=== PATIENT | male | born 1950 | race Caucasian/White ===

== ENCOUNTER → 2023-11-09 | Outpatient (CLI) | payer MEDICARE, SELFPAY ==
--- NOTE | 2023-11-09 07:26 | MRI_ITS ---
MRI Abdomen w/ and w/out contrast 11/09/2023 7:53 AM COMPARISON: CT 11/03/2023 CLINICAL HISTORY: LEFT KIDNEY MASS TECHNIQUE: Multiplanar T1 and T2 weighted, diffusion and dynamic post-gadolinium images were obtained through the abdomen before and after administration of 17 cc of IV Clariscan. FINDINGS: Liver: Unremarkable Gallbladder: Unremarkable Pancreas: Unremarkable Spleen: Unremarkable Adrenal Glands: Unremarkable Kidneys: In the lower pole of the left kidney, there is a 3.1 x 3.3 x 3.5 cm T1 and T2 mixed intensity lesion. There is no drop in signal on T1 opposed phase images compared to T1 in phase images. On postcontrast images, there is questionable minimal heterogeneous enhancement. There are other non enhancing T2 hyperintense simple cysts in the left kidney. GI Tract: Unremarkable Lymphadenopathy: Absent Ascites: Absent Bones: No suspicious lesions MRI/MRI Abd WITH and W/O Contrast IMPRESSION: 3.5 cm mixed intensity lesion in the left lower renal pole with questionable minimal heterogeneous enhancement. This lesion remains indeterminate and could represent a hemorrhagic cyst versus renal cell carcinoma. Consider short term follow-up CT in 3 months to assess for growth. Electronically Signed: David Mix MD at 19:15 EDT ,
== END | disposition home or self-care (01) ==
PROVIDERS: PCP Internal Medicine; Referring Provider Internal Medicine Hematology & Oncology; Visit Provider Internal Medicine Hematology & Oncology
DX: N28.89 Other specified disorders of kidney and ureter (principal); C20 Malignant neoplasm of rectum
CPT/HCPCS: 74183; A9575

== ENCOUNTER 2023-11-21 09:16 | Day surgery (SDC) | payer MEDICARE, SELFPAY ==
[2023-11-21] VITALS (9 sets, daily range): BP systolic 118–155; BP diastolic 55–77; PULSE 66–86; RESP 16–18; TEMP 36.1–36.9; O2SAT 95–100; BMI 28.5
--- NOTE | 2023-11-21 09:45 | HP.PCM_ITS ---
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 Required: No Is patient in pain?: No Allergies lisinopril Allergy (Mild, Verified 11/16/23 10:04) Rash Medications ?Medication ?Instructions ?Recorded ?Confirmed ?Type amlodipine 10 mg tablet 10 mg PO QHS 10/25/23 11/16/23 History aspirin 81 mg tablet,delayed 81 mg PO DAILY 10/25/23 11/16/23 History release (Adult Aspirin Regimen) atenolol 50 mg tablet 50 mg PO QHS 10/25/23 11/16/23 History atorvastatin 40 mg tablet 40 mg PO QHS 10/25/23 11/16/23 History dapagliflozin propanediol 5 mg 5 mg PO DAILY 10/25/23 11/16/23 History tablet (Farxiga) levothyroxine 125 mcg capsule 125 mcg PO DAILY 10/25/23 11/16/23 History loratadine 10 mg tablet 10 mg PO DAILY 10/25/23 11/16/23 History losartan 25 mg tablet 25 mg PO QHS 10/25/23 11/16/23 History metformin 500 mg tablet 500 mg PO BID 10/25/23 11/16/23 History semaglutide 0.25 mg or 0.5 mg (2 0.25 mg subcut QWEEK 10/25/23 11/16/23 History mg/3 mL) subcutaneous pen injector (Spacious App) lidocaine-prilocaine 2.5 %-2.5 % 1 applic topical ONCE PRN port 11/03/23 11/16/23 Rx topical cream access 30 days #30 grams ondansetron 8 mg disintegrating 8 mg PO Q8H PRN nausea and 11/03/23 11/16/23 Rx tablet vomiting #30 tabs PFSH Medical History Encounter for education Wears hearing aid Wears partial dentures Wears dentures Easy bruising Back pain Dietary restriction Heartburn Smoker History of stress test Cardiology follow-up encounter Iron deficiency anemia due to chronic blood loss Anemia Liver lesion Left kidney mass Rectal cancer Thyroid nodule Arthritis Type 2 diabetes mellitus Hyperlipidemia Hypothyroidism Essential hypertension Surgical History Hx of right cataract extraction Hx of left cataract extraction Hx of colonoscopy H/O removal of testicle History of tonsillectomy and adenoidectomy History of knee surgery History of ear surgery Family History Grandfather DiabetesMother Cancer ovarianGrandmother Myocardial infarctionAunt Cancer female reproductive cancer Social History household members: spouse Smoking Status: Current every day smoker tobacco type: cigarettes Tobacco: How many years used: 55 alcohol intake: never substance use type: does not use HPI HPI HPI: Patient is a 72-year-old male here for port placement for chemotherapy for rectal cancer. Patient is planning to start chemotherapy early next week. ROS General General: Yes weight change and colon cancer; No appetite, fatigue, breast cancer or weakness HEENT HEENT: No difficulty swallowing, eye injury, eye surgery, swollen glands or hoarseness Endo Endocrine: Yes diabetes mellitus; No thyroid disease, thyroid cancer, Hair loss, heat intolerance or cold intolerance Skin Skin: No rash or changing moles Breast Breast: No left breast lump, right breast lump, nipple discharge, breast pain, abnormal mammogram, abnormal US or breast enlargement Musc Musculoskeletal: Yes back problems and arthritis; No rheumatoid arthritis, gout or joint pain Cardio Cardiovascular: No murmur, pacemaker, heart disease, atrial fibrillation, high blood pressure, heart attack, heart stent, palpitations, shortness of breat with exertion or chest pain Psych Psychiatric: No depression, anxiety or hearing voices Resp Respiratory: No shortness of breath, No sleep apnea, Yes cough, No COPD, No asthma, No emphysema and No wheezing Gastro Gastrointestinal: No abdominal pain, No nausea or vomiting, No diarrhea, No constipation, No blood in stool, No acid reflux, No hemorrhoids, No ulcers, No gallbladder problem and No black,tarry stools David Hematologic: Yes blood thinners, No blood disorders, No bleeding, No anemia and No blood clots Neuro Neurologic: No system reviewed and no additional complaints, except as documented, No as per HPI, No abnormal gait, No abnormal hearing, No abnormal movements, No abnormal speech, No behavioral changes, No burning sensations, No confusion, No convulsions, No disequilibrium, No dizziness, No localized weakness, No frequent falls, No headache(s), No lack of coordination, No loss of vision, No memory loss, No numbness, No other visual disturbances, No radicular pain, No restless legs, No sensory deficit, No syncope, No tingling, No tr emor(s), No weakness and No other Exam Const General: cooperative Orientation: alert and oriented x3 HENMT Head: normal to inspection Neck Neck: normal visual inspection and full ROM Chest Chest palpation & inspection: normal inspection of the chest Resp Effort & Inspection: normal respiratory effort Auscultation: clear to auscultation bilaterally Cardio Rate: regular rate Rhythm: regular rhythm GI Inspection: non-distended Palpation: soft and nontender Skin General: no rashes or lesions noted Neuro General: patient alert and patient oriented x3 Extrem General: full ROM Psych Appearance: grossly normal Mental Status: mental status grossly normal Assessment and Plan Assessment and Plan (1) Encounter for adjustment and management of vascular access device: Status: Acute Plan: Patient is here for port placement for chemotherapy for rectal cancer. I discussed port placement with the patient in detail as well as the risks including but not limited to bleeding, infection, pneumothorax, line infection or DVT. Patient understands all the risks and is willing to proceed. Unfortunately the patient took his Ozempic last Tuesday so I will have to schedule next week. I have him tentatively scheduled for Tuesday afternoon and I talked to Dr. Ardon about delaying chemotherapy until Tuesday. I will leave his port accessed after putting it in Tuesday for chemotherapy Tuesday. Patient will hold his aspirin starting today. Brad Randall MD Pager: [facility] [address] [place] [address], [address] [place] [address] Office: I have examined the patient and the H&P has been reviewed. There are no clinical changes since date of exam.
[2023-11-21] MEDS: Lactated Ringers 1,000 ML 15 ML IV (09:52)
--- NOTE | 2023-11-21 10:12 | PCM.PRE.AN2 ---
ASA Classification* ASA Classification ASA Classification: 3 Assessment & Plan Anesthesia* Anesthesia Assessment Anesthesia Assessment: Discussed sedation and/or anesthesia options, risks, benefits, and alternatives with patient/parents/legal guardian/POA. Questions invited. The patient/parents/legal guardian/POA seems to understand and agrees to proceed with anesthesia plan. Reviewed the physical assessment, medical history, allergy history and patient home medications list prior to surgery/procedure/anesthetic and documented any changes. Performed airway and anesthesia risk assessments. Anesthesia Type Anesthesia Type: MAC History Source History Obtained from:: Patient and Chart Pre-Assessment Diagnosis/Proposed Procedure Planned Operative Procedure(s): INSERTION VASCULAR PORT RIGHT Anesthesia History Anesthesia History - business services sales representative: Anesthesia History - business services sales representative Hx Hospitalization No 11/01/23 11:27 Any Problems With Anesthesia No 11/01/23 11:27 Cholinesterase deficiency No 11/01/23 11:27 You/Your Family Experience No 11/01/23 11:27 fever (hyperthermia) with Relationship Recent Exposure to Contagious No 11/21/23 09:52 Disease Does patient have nerve No 11/01/23 11:27 stimulator Patient instructed to have device shut off --Does patient have Pacemaker No 11/21/23 09:52 or ICD? When Was Last Pacemaker Check QUESTION #4 FULL TEXT: You/Your Family Experience fever (hyperthermia) with Anesthesia Last Oral Intake Last Oral intake: Last Oral Intake NPO since 00:00 11/21/23 09:52 Meds taken in AM with sips of water? Meds patient instructed to take am of surgery PONV PONV - business services sales representative: PONV - business services sales representative Female No 11/01/23 11:27 HX of Motion Sickness No 11/01/23 11:27 HX of N/V After Surgery No 11/01/23 11:27 Non-Smoker No 11/01/23 11:27 Duration of Surgery greater No 11/01/23 11:27 than 60 minutes Number of Risk Factors PONV Score Height & Weight Height & Weight: Anesthesia: Height & Weight Height 5 ft 7 in 11/21/23 09:52 Weight: 82.554 kg 11/21/23 09:52 Body Mass Index (BMI) 28.5 11/21/23 09:52 Respiratory Assessment Respiratory Assessment - business services sales representative: Respiratory Tract Infection Hx - business services sales representative Hx Respiratory Tract Infection No 11/01/23 11:27 STOP Sleep Apnea STOP Sleep Apnea - business services sales representative: STOP Sleep Apnea - business services sales representative Hx Hypertension Yes: CONTROLLED WITH MEDS 11/01/23 11:27 Hx Sleep Apnea No 11/01/23 11:27 CPAP BIPAP Do you snore loudly (louder No 11/01/23 11:27 than talking or can be heard Do you often feel tired/ No 11/01/23 11:27 fatigued/ sleepy during daytime? Has anyone observed you stop No 11/01/23 11:27 breathing during sleep? STOP Results Negative 11/01/23 11:27 QUESTION #5 FULL TEXT : Do you snore loudly (louder than talking or can be heard through closed doors)? 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 Specify any problems Hx of Preganancy in last 3 N/A 11/01/23 11:27 Months Nurse Filling Out Transfusion DSCHRIBER 11/01/23 11:27 & Questions: Date: 11/01/23 11/01/23 11:27 Time: 11:28 11/01/23 11:27 Patient unable to answer at this time (ie. confused, unrespo /Reproduction History /Reproductive History - business services sales representative: /Reproductive Hx- business services sales representative Hx Now No 11/01/23 11:27 Gestational Age (in weeks): EDC: Hx Hx Para Hx Section SAB No 11/01/23 11:27 Active Medications Active Medications: Current Medications Generic Name Dose Route Start Last Admin Trade Name Freq PRN Reason Stop Dose Admin Cefazolin Sodium 2 gm/ Sodium 110 mls @ 150 mls/hr 11/21/23 14:05 Chloride IV 11/21/23 14:48 PREOP ONE Lactated Ringer's 1,000 mls @ 15 mls/hr 11/21/23 09:45 11/21/23 09:52 IV 15 mls/hr .Q48H RENETTA Administration Anesthesia Focused Assessment* Temperature: 97.0 F Pulse Rate: 78 Blood Pressure: 155/67 Respiratory Rate: 16 Pulse Ox: 100 Oxygen Delivery Method: Room Air Airway Assessment Mouth opens: >3 cm Mallampati Score: IV Teeth Condition: Dentures (Full upper plate) and Partial (Lower) Neck Range of motion (ROM): Limited ROM (Slight decrease) Comment: Full springer Focused Labs Anesthesia Preop lab: CBC WBC 10.5 K/mm3 (4.4-11.0) 10/31/23 09:57 RBC 3.99 M/mm3 (4.6-6.2) L 10/31/23 09:57 Hgb 10.4 g/dL (13.0-16.5) L 10/31/23 09:57 Hct 33.2 % (40-54) L 10/31/23 09:57 Plt Count 352 K/mm3 (150-450) 10/31/23 09:57 CHEMISTRY Potassium 4.4 mmol/L (3.5-5.1) 10/31/23 09:57 Sodium 131 mmol/L (136-145) L 10/31/23 09:57 BUN 17 mg/dL (7-18) 10/31/23 09:57 Creatinine 1.07 mg/dL (0.70-1.30) 10/31/23 09:57 Glucose 109 mg/dL (74-106) H 10/31/23 09:57 COAG Review of Systems (Anesthesia) ROS Narrative System reviewed and no additional complaints, except as documented. [facility] Medical History Encounter for education Wears hearing aid Wears partial dentures Wears dentures Easy bruising Back pain Dietary restriction Heartburn Smoker History of stress test Cardiology follow-up encounter Iron deficiency anemia due to chronic blood loss Anemia Liver lesion Left kidney mass Rectal cancer Thyroid nodule Arthritis Type 2 diabetes mellitus Hyperlipidemia Hypothyroidism Essential hypertension Home Medications ?Medication ?Instructions ?Recorded ?Last Taken ?Type amlodipine 10 mg tablet 10 mg PO QHS 10/25/23 11/19/23 History aspirin 81 mg tablet,delayed 81 mg PO DAILY 10/25/23 11/19/23 History release (Adult Aspirin Regimen) atenolol 50 mg tablet 50 mg PO QHS 10/25/23 11/19/23 History atorvastatin 40 mg tablet 40 mg PO QHS 10/25/23 11/19/23 History dapagliflozin propanediol 5 mg 5 mg PO DAILY 10/25/23 11/19/23 History tablet (Farxiga) levothyroxine 125 mcg capsule 125 mcg PO DAILY 10/25/23 11/19/23 History loratadine 10 mg tablet 10 mg PO DAILY 10/25/23 11/19/23 History losartan 25 mg tablet 25 mg PO QHS 10/25/23 11/19/23 History metformin 500 mg tablet 500 mg PO BID 10/25/23 11/19/23 History semaglutide 0.25 mg or 0.5 mg (2 0.25 mg subcut KIMBLE 10/25/23 11/13/23 History mg/3 mL) subcutaneous pen injector (Ozempic) lidocaine-prilocaine 2.5 %-2.5 % 1 applic topical ONCE PRN port 11/03/23 11/19/23 Rx topical cream access 30 days #30 grams ondansetron 8 mg disintegrating 8 mg PO Q8H PRN nausea and 11/03/23 Unknown Rx tablet vomiting #30 tabs Allergy/AdvReac Type Severity Reaction Status Date / Time lisinopril Allergy Mild Rash Verified 11/21/23 10:05 Family History Grandfather Diabetes Mother Cancer ovarian Grandmother Myocardial infarction Aunt Cancer female reproductive cancer Surgical History Hx of right cataract extraction Hx of left cataract extraction Hx of colonoscopy H/O removal of testicle History of tonsillectomy and adenoidectomy History of knee surgery History of ear surgery Social History household members: spouse Smoking Status: Current every day smoker tobacco type: cigarettes Tobacco: How many years used: 55 alcohol intake: never substance use type: does not use Addt'l Information Additional Findings: Patient smokes a pack and a half a day. He did smoke today
[2023-11-21 10:27] LABS: Bedside Glucose 121 mg/dL (74-106)
[2023-11-21] MEDS: Cefazolin 2 GM in 0.9% Normal Saline (100mL Bag) 100 ML IV (10:46)
[2023-11-21] MEDS: Bupivacaine 0.5% PF 10 ML VIAL (11:13)
[2023-11-21] MEDS: Lidocaine 1% /Epi 1:100 (20ml) 20 ML Vial (11:13)
--- NOTE | 2023-11-21 11:25 | OP.PCM_ITS ---
Report of Operation Date of Procedure: 11/21/23 Pre-Operative Diagnosis: Need for vascular access for chemotherapy Post-Operative Diagnosis: Same Surgery/Procedure Performed:: Ultrasound fluoroscopy guided right chest port placement utilizing right IJ Type of Anesthesia: Local MAC Estimated Blood Loss (mL): 5 Description of Procedure: After obtaining informed consent patient was brought back to the operating room MAC anesthesia was induced and the right chest and neck were prepped in normal sterile fashion. Ultrasound was used to evaluate both IJs and the right IJ was selected. Next, using a needle, the right IJ was accessed and a guidewire was passed on into the superior vena cava under fluoroscopy guidance. A small incision was made over the puncture site and the dilator introducer was placed over the guidewire. Next this was capped and the pocket was made for the port. 1% lidocaine with epinephrine was injected in the proposed port site. An incision was made with scalpel. Electrocautery was used to make a pocket under the skin and subcutaneous tissue. Hemostasis was obtained. Next, the catheter was tunneled up to the neck incision site and placed through the introducer. The peel-away introducer was removed and the position of the catheter was confirmed on fluoroscopy. Next, the catheter was trimmed and attached to the port with the locking device. Interrupted 2-0 Vicryl sutures were used to anchor the port to the chest wall and then the port was placed inside the pocket. The pocket was then flushed with saline and the port irrigated with saline. There was good blood return and the port flushed easily. The skin was closed with subcutaneous interrupted 3-0 Vicryl sutures. A single 3-0 Vicryl sutures placed under the skin at the neck incision site. Steri-Strips were placed and then the port was accessed. The catheter was aspirated and flushed and then flushed with 3 cc of heparinized saline and they were clamped and capped. Catheter flushed and aspirated easily. Next dressings were applied. Patient tolerated procedure well, was taken to PACU in stable condition. Chest x-ray will be obtained. Grafts/Implants Used: 8 [place] PowerPort Admit VTE Documentation VTE Mechan Device Prophylaxis: SCD's
--- NOTE | 2023-11-21 11:27 | DCINST_ITS ---
Discharge Instructions Procedure Port-A-Cath Diet Discharge Diet: Light diet - advance as tolerated (Pain medication may cause nausea. You should typically eat light foods as you take your pain medication.) Activity Discharge Activity: Return to Normal Activity and May Shower (with your bandage in place in 1-2 days after surgery. DO NOT SHOWER WHEN YOUR PORT IS ACCESSED.) Additional Activity Instructions:: Resume Ozempic this Tuesday, resume aspirin tomorrow. Ibuprofen and Tylenol alternating for pain. Ice if needed. Dressing / Incision Call your doctor if your incision/area has: Continuous Slow Oozing, Sudden Increased Bleeding, Increased Pain/ Swelling, Increased Redness and Foul Smelling Discharge Call your doctor if you observe: Fever of 101 or Higher Remove Dressing in: 2 days Cleanse incision/area with: Soap & Water Follow Up Care Please Follow Up With: Brad Randall MD When: as needed [phone] Test Results: Test results from this visit will be discussed in further detail at your follow- up appointment, if applicable. Discharge Plan Admission Attending Provider: Brad Randall Primary Care Provider: Randa Santos Instructions Print Language: Niuean Discharge Orders/Prescriptions Prescriptions: No Action loratadine 10 mg tablet 10 mg PO DAILY levothyroxine 125 mcg capsule 125 mcg PO DAILY dapagliflozin propanediol [Farxiga] 5 mg tablet 5 mg PO DAILY Ozempic 0.25 mg or 0.5 mg (2 mg/3 mL) pen injector 0.25 mg subcut KIMBLE Rx Instructions: for 4 weeks metformin 500 mg tablet 500 mg PO BID losartan 25 mg tablet 25 mg PO QHS atenolol 50 mg tablet 50 mg PO QHS aspirin [Adult Aspirin Regimen] 81 mg tablet,delayed release (DR/EC) 81 mg PO DAILY amlodipine 10 mg tablet 10 mg PO QHS atorvastatin 40 mg tablet 40 mg PO QHS ondansetron 8 mg tablet,disintegrating 8 mg PO Q8H PRN (Reason: nausea and vomiting) Qty: 30 1RF lidocaine-prilocaine 2.5-2.5 % cream 1 applic topical ONCE PRN (Reason: port access) 30 Days Qty: 30 2RF Referrals / Follow Up: Randa Santos MD [Primary Care Provider] - Disposition Disposition (needs filled in before D/C Order can be placed): Home, Self Care
--- NOTE | 2023-11-21 11:27 | RAD_ITS ---
STUDY: X-RAY CHEST REASON FOR EXAM: Male, 72 years old. Port placement TECHNIQUE: Single AP portable view of the chest. COMPARISON: None. FINDINGS: A right-sided portacatheter is in place. The tip is at the junction of the superior vena cava and right atrium. Hyperinflation. The lungs are clear. Scattered calcified granulomas. There is no demonstrated pleural abnormality. Normal size heart. Right hilar calcified lymph nodes. Normal visualized pulmonary arteries. There is atherosclerotic calcification of the aortic arch with tortuosity. There are diffuse degenerative changes of the visualized thoracic spine. Normal visualized ribs, clavicles, and shoulders. There is no demonstrated abnormality of the visualized soft tissue structures of the upper abdomen. RAD/CXR for Line Placement IMPRESSION: The tip of the right Port-A-Cath is at the junction of the superior vena cava and right atrium. The lungs are clear. Electronically Signed: Ronni Eugene MD at 12:37 EDT ,
--- NOTE | 2023-11-21 11:27 | PCM.POST.ANE ---
Anesthesia: Postop Eval I Current Vital Signs Temperature: 98.4 F Pulse Rate: 84 Blood Pressure: 125/72 Respiratory Rate: 18 Pulse Ox: 98 Oxygen Delivery Method: Room Air Assessment Airway patent: Yes Spontaneous unlabored respirations: Yes Mental status: Awake and Calm nausea: No Vomiting: No Anesthesia Complication: No Fluid Hydration Crystalloid volume administer (ml): 200 Total IV fluid infused: 200 Progress Note Anesthesia document: Postop Eval 1 completed: Yes
--- NOTE | 2023-11-22 09:57 | POSTOPAN2_ITS ---
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.[email or web address] Spontaneous unlabored Yes 11/21/23 11:28 SCHOOL BUS [email or web address].[email or web address] respirations Mental status Awake,Calm 11/21/23 11:28 SCHOOL BUS DISPATCHER.[email or web address] nausea No 11/21/23 11:28 SCHOOL BUS [email or web address].[email or web address] Vomiting No 11/21/23 11:28 SCHOOL BUS [email or web address].[email or web address] Anesthesia Postop Eval I: Fluid Summary Crystalloid volume administer 200 11/21/23 11:28 SCHOOL BUS [email or web address].[email or web address] (ml) Colloids volume administered ( ml) Blood Product volume administered (ml) Total IV fluid infused 200 11/21/23 11:28 SCHOOL BUS [email or web address].[email or web address] Anesthesia Postop Eval I: Summary Notes Anesthesia Complication No 11/21/23 11:28 SCHOOL BUS [email or web address].[email or web address] Anesthesia Complication Comment: Post-operative progress note Anesthesia: Postop Eval II Evaluation Mental status: Awake and Calm Pain Level: 0 nausea: No Vomiting: No Complications Anesthesia Complication: No
--- NOTE | 2023-11-22 09:57 | PCM.POSTANE2 ---
Anesthesia Postop Eval I Sum Postop Eval Completion status Anesthesia document: Postop Eval 1 completed: Yes Anesthesia Postop Eval I Summary Anesthesia Postop Eval I Summary: Anesthesia Postop Eval I: Assessment Summary Airway patent Yes 11/21/23 11:28 ESOL TEACHER.[email or web address] Spontaneous unlabored Yes 11/21/23 11:28 ESOL TEACHER.[email or web address] respirations Mental status Awake,Calm 11/21/23 11:28 ESOL TEACHER.[email or web address] nausea No 11/21/23 11:28 ESOL TEACHER.[email or web address] Vomiting No 11/21/23 11:28 ESOL TEACHER.ANDREA Anesthesia Postop Eval I: Fluid Summary Crystalloid volume administer 200 11/21/23 11:28 ESOL [email or web address].[email or web address] (ml) Colloids volume administered ( ml) Blood Product volume administered (ml) Total IV fluid infused 200 11/21/23 11:28 ESOL TEACHER.ANDREA Anesthesia Postop Eval I: Summary Notes Anesthesia Complication No 11/21/23 11:28 ESOL [email or web address].ANDREA Anesthesia Complication Comment: Post-operative progress note Anesthesia: Postop Eval II Evaluation Mental status: Awake and Calm Pain Level: 0 nausea: No Vomiting: No Complications Anesthesia Complication: No
== END 2023-11-21 12:52 | disposition home or self-care (01) ==
LOC: SDC 09:18 → AC 09:21
PROVIDERS: PCP Internal Medicine; Referring Provider Surgery; Visit Provider Surgery
PROC: (CPT 36561; principal; 2023-11-21 10:15)
DX: Z45.2 Encounter for adjustment and management of vascular access device (principal); C20 Malignant neoplasm of rectum; E11.9 Type 2 diabetes mellitus without complications; I10 Essential (primary) hypertension; F17.210 Nicotine dependence, cigarettes, uncomplicated; E78.5 Hyperlipidemia, unspecified; Z79.899 Other long term (current) drug therapy; Z79.82 Long term (current) use of aspirin; Z79.890 Hormone replacement therapy; Z79.84 Long term (current) use of oral hypoglycemic drugs; Z79.01 Long term (current) use of anticoagulants; Z79.85 Long-term (current) use of injectable non-insulin antidiabetic drugs; E03.9 Hypothyroidism, unspecified; E04.1 Nontoxic single thyroid nodule
CPT/HCPCS: 36561; 00532; 71045; 77001; 77386; 82962; J7120; C1788

== ENCOUNTER → 2024-06-11 | Outpatient (CLI) | payer MEDICARE, SELFPAY ==
--- NOTE | 2024-06-11 15:30 | CT_ITS ---
STUDY: CT CHEST, ABDOMEN T PELVIS WITH CONTRAST REASON FOR EXAM: Male, 73 years old. F/U RECTUM CA, LIVER LESION LEFT KIDNEY MASS RADIATION DOSAGE (If Supplied By Facility): CTDIvol = ( 12.41 ) mGy, DLP = ( 1519.21 ) mGycm TECHNIQUE: Transaxial imaging was performed following intravenous administration of IV 100mL Isovue-300. Multiplanar coronal and sagittal images were reformatted. Individualized dose optimization techniques were used for this CT. COMPARISON: Comparison is made with prior MRI of the abdomen dated November 09, 2023. FINDINGS: CHEST A right-sided portacatheter is seen with the tip in the superior vena cava. Small benign-appearing bilateral axillary lymph nodes. Hyperinflation. No infiltrate or mass lesion is seen. There is no demonstrated pleural abnormality. There are calcifications of the coronary arteries. Normal mediastinum. Normal hilar regions. Normal unenhanced pulmonary arteries. There is atherosclerotic calcification of the aortic arch and descending thoracic aorta. There are multi-level degenerative changes of the thoracic spine. Old right-sided rib fractures. ABDOMEN Normal liver. The gallbladder is contracted. Normal spleen. Normal pancreas. Normal bilateral adrenal glands. Normal right kidney. There is a 3.5 cm x 3.5 cm hypodense mass in the lower pole of the left kidney. There is a 2.6 cm cyst in the posterior midportion of the left kidney. There is a 3.8 cm cyst in the medial inferior pole of the left kidney. Normal visualized stomach. Normal small intestine. Circumferential wall thickening of the rectosigmoid junction. The appendix is visualized and appears normal. There is diffuse atherosclerotic calcification of the abdominal aorta and its major visceral branches, without a demonstrated aneurysm. Normal inferior vena cava. Normal retroperitoneum. Small bilateral hernias containing fat right greater than left. There are diffuse degenerative changes of the visualized lumbar spine. PELVIS Diffuse bladder wall thickening. Heterogeneous enlargement of the prostate with indentation at the bladder base. The prostate measures 4.7 size by 5.7 cm. There is no pelvic fluid. There is no pelvic lymphadenopathy or mass lesion. Normal visualized pelvic arteries. CT/CT Chest, Abd, Pel w/Contrast IMPRESSION: 3.5 cm x 3.5 cm hypodense mass in the lower pole of left kidney. This is not a typical cyst. This was seen on prior MRI of the abdomen. Simple cysts are also seen in the left kidney. Circumferential wall thickening at the rectosigmoid junction. Heterogeneous enlargement of prostate with indentation of the bladder base. Diffuse bladder wall thickening. Electronically Signed: Ronni Eugene MD at 13:09 EST ,
[2024-06-11] MEDS: 0.9% Saline Lock 10 ML Syringe IV (15:50)
== END | disposition home or self-care (01) ==
LOC: CT 15:30
PROVIDERS: PCP Internal Medicine; Referring Provider Internal Medicine Hematology & Oncology; Visit Provider Internal Medicine Hematology & Oncology
DX: C20 Malignant neoplasm of rectum (principal); N28.89 Other specified disorders of kidney and ureter; K76.9 Liver disease, unspecified

== ENCOUNTER → 2024-09-24 | Outpatient (CLI) | payer MEDICARE, SELFPAY ==
--- NOTE | 2024-09-24 08:22 | MRI_ITS ---
PROCEDURE: MRI ABD WITH AND W/O CONTRAST (MRIABDWW), 09/24/2024 REASON FOR EXAM: RENAL MASS TECHNIQUE: Multiplanar multisequence MRI abdomen was performed with and without IV contrast. IV CONTRAST: 17 mL Clariscan COMPARISON: 06/11/2024 and prior FINDINGS: Note that the exam was optimized for evaluation of the kidneys, and as such, some upper abdominal viscera are excluded from the field of view on some sequences. Variable overall mild motion limitation. Some axial T1 precontrast is moderately motion degraded. Note dynamic postcontrast and diffusion sequences were not performed. Liver: Grossly unremarkable as imaged. Spleen: Grossly unremarkable as imaged. Gallbladder: Unremarkable. Pancreas: Unremarkable. Adrenals: Unremarkable. Kidneys: Index mostly exophytic heterogeneously T2 dark and T1 bright solid- appearing LEFT lower pole renal lesion measures 3.8 x 3.5 x 3.6 cm compared with 3.3 x 3.1 by 3.1 cm on 11/09/2023. Lesion is minimally excluded from the field of view on some axial sequences but is included in the field of view on other sequences obtained, including coronal sequences. Difficult to evaluate for superimposed enhancement in the absence of subtraction imaging which cannot be generated on discussion with technologist due to technical factors. Additional bilateral renal cysts, one of which on the LEFT contains a thin enhancing septation, Bosniak I-II. Bowel: Better evaluated on previous CT. Lymph nodes: Unremarkable. Vasculature: Severe atherosclerosis, better evaluated on previous CT, including multifocal ectasia/aneurysm up to roughly 3.2 x 2.9 cm. Focal stenosis at the proximal SMA, not well evaluated Peritoneum: Unremarkable. Bones: Presumed degenerative enhancement in the LEFT iliac bone abutting the posterior SI joint in an area where sclerosis was present previously. Mild thoracolumbar dextroscoliosis.. Spondylosis. Other: Bladder wall thickening/trabeculation suggested. MRI/MRI Abd WITH and W/O Contrast IMPRESSION: 1. Slightly enlarged now 3.8 cm LEFT lower pole renal lesion compared with 10/28. Evaluation for enhancement is limited due to technical factors, however increased in size is suspicious for neoplasm, spe cifically including papillary renal cell carcinoma. Recommend urology consultation for management. 2. Abdominal aortic aneurysm to 3.2 cm. Recommend follow-up in 3 years per 201 3 ACR recommendations. 3. Correlate for cystitis and/or chronic bladder outlet obstruction. 4. Additional description as above. Reading Location: [facility]
[2024-09-24] MEDS: 0.9% Saline Lock 10 ML Syringe IV (09:11)
== END | disposition home or self-care (01) ==
LOC: OPMRI 08:10
PROVIDERS: PCP Internal Medicine
DX: N28.89 Other specified disorders of kidney and ureter (principal)
CPT/HCPCS: 74183; A9575

== ENCOUNTER → 2024-12-13 | Outpatient (CLI) | payer MEDICARE, SELFPAY ==
--- NOTE | 2024-12-13 15:07 | CT_ITS ---
PROCEDURE: CT chest abdomen and pelvis with IV contrast 12/13/2024 REASON FOR EXAM: RECTAL CA TECHNIQUE: Chest, abdomen and pelvis CT with intravenous contrast. Coronal and Sagittal reconstruction series were provided. One or more dose reduction techniques were used (e.g., Automated exposure control, adjustment of the mA and/or kV according to patient size, use of iterative reconstruction technique. PATIENT PREPARATION: Per protocol ORAL CONTRAST TYPE: None. CONTRAST: Isovue-300 VOLUME: 88mL RADIATION DOSE SUMMARY: CTDlvol: 42.32 mGy DLP: 1300.11 mGycm COMPARISON: MRI abdomen with and without contrast, 09/24/2024 FINDINGS: CT CHEST: Lower neck: The thyroid gland is diminutive. There is no supraclavicular lymphadenopathy. Mediastinum: No abnormal masses or lymphadenopathy. Heart/thoracic aorta: The heart size is normal. There is no pericardial effusion. There is calcific vascular disease of the thoracic aorta and coronary arteries. There is no evidence of thoracic aortic aneurysm or aortic dissection. The main pulmonary artery is normal in diameter. Airways/lungs/pleura: There is no significant interstitial or alveolar lung disease. There are no pulmonary nodules. There are no pleural effusions. Esophagus: Normal. Chest wall: There is a chemotherapy port in the right upper chest wall with the tip in the superior vena cava via the right internal jugular vein. 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 There is mild levoscoliosis of the thoracic spine. CT ABDOMEN/PELVIS: Liver: Normal. Gallbladder: Normal. Spleen: Normal. Pancreas: Normal. Adrenals: Normal. Kidneys: In the lower pole of the left kidney there is a 2.4 x 2.3 x 2.0 cm (measures 3.8 x 3.6 x 3.0 cm on the MR examination. This is likely a neoplasm treated with ablation. There are 2 cortical cyst in the interpolar region of the left kidney. The right kidney is unremarkable. Bladder: The bladder is distended consistent with bladder outlet obstruction and/or cystitis. Reproductive Organs: The prostate gland measures 4.0 cm in transverse dimension. The seminal vesicles are unremarkable. There is no free fluid in the pelvis. There are multiple reactive inguinal lymph nodes bilaterally, not significantly changed. Bowel: There is circumferential thickening of the wall of the distal sigmoid colon and rectum. There is increased attenuation of the perirectal fat in the adjacent fascia which could be due to radiation therapy. There is no pelvic lymphadenopathy identified. Appendix: Normal. Lymph nodes: There is no mesenteric, retroperitoneal or pelvic lymphadenopathy. Vasculature: There is calcific vascular disease of the abdominal aorta. There is a bilobed infrarenal abdominal aortic aneurysm measuring 3.2 cm in AP dimension. Peritoneum / Retroperitoneum: There are no abnormal intra or retroperitoneal masses or fluid collections. There is a right inguinal hernia measuring 4.0 cm in diameter containing fat and a portion of the urinary bladder. Bones: There is multilevel degenerative disc disease of the lower thoracic and lumbar spine most severe at the L5-S1 level. There is mild dextroscoliosis of the thoracolumbar spine. CT/CT Chest, Abd, Pel w/Contrast IMPRESSION: 1. Circumferential thickening of the wall of the distal sigmoid colon and rect um of uncertain clinical significance. 2. There are stable reactive inguinal lymph nodes bilaterally. There is no pe lvic, mesenteric or retroperitoneal lymphadenopathy. 3. There is a thick walled low-density nodule in the lower pole cortex of the left kidney, consistent with a tumor treated with ablation. 4. Large right inguinal hernia containing a portion of the urinary bladder. 5. Other findings as noted. Reading Location: [place] [id number]
[2024-12-13] MEDS: 0.9% Saline Lock 10 ML Syringe IV (15:15)
[2024-12-13 15:32] LABS: CREATININE FINGERSTICK 1.4 mg/dL (0.70-1.30); EGFR FINGERSTICK 53.0000 mL/min (>60)
== END | disposition home or self-care (01) ==
LOC: CT 15:06
PROVIDERS: PCP Internal Medicine; Referring Provider Internal Medicine Hematology & Oncology; Visit Provider Internal Medicine Hematology & Oncology
DX: K76.9 Liver disease, unspecified (principal); C20 Malignant neoplasm of rectum; N28.89 Other specified disorders of kidney and ureter
CPT/HCPCS: 71260; 74177; Q9967; A4216